=== PATIENT | female | born 1990 | race Two or more races ===

== ENCOUNTER → 2022-07-24 | Day surgery (SDC) | payer MEDICAID ==
[2022-07-23 12:13] LABS: INR 0.98 (0.9-1.15); Partial Thromboplastin Time 27.7 sec (24.6-33.4)
[2022-07-23 12:15] LABS: Albumin 3.9 g/dL (3.4-5.0); Calcium 8.5 mg/dL (8.5-10.1); Potassium 4.1 mmol/L (3.5-5.1)
[2022-07-23 12:18] LABS: BUN/Creatinine Ratio 14.1; Basophils # (auto) 0.2 10 ^3/uL (0-0.2); Basophils % (auto) 2.7 % (0.0-2.0); Bilirubin, Total 0.3 mg/dL (0.2-1.0); Eosinophils # (auto) 0.1 10 ^3/uL (0-0.8); Eosinophils % (auto) 1.4 % (0.0-7.0); Hematocrit 38.9 % (36.0-46.0); Hemoglobin 13.3 g/dL (12.2-16.2); Lymphocytes # (auto) 1.4 10 ^3/uL (0.4-5.4); Lymphocytes % (auto) 17.1 % (10.0-50.0); Mean Corpuscular Hemoglobin 32.1 pg (28.0-32.0); Mean Corpuscular Hgb Conc. 34.2 g/dL (32.0-36.0); Monocytes # (auto) 0.5 10 ^3/uL (0-1.3); Monocytes % (auto) 5.4 % (0.0-12.0); Neutrophils # (auto) 6.2 10 ^3/uL (1.6-8.6); Neutrophils % (auto) 73.4 % (37.0-80.0); Red Blood Cells 4.13 10^6/uL (4.0-5.20); Red Cell Distribution Width 12.3 % (11.8-14.3); Total Protein 7.6 g/dL (6.4-8.2); White Blood Cell 8.5 10^3/uL (4.4-10.8)
[2022-07-23 12:19] LABS: Urine Bacteria NONE SEEN /hpf (None Seen); Urine Blood Negative /uL (Negative); Urine WBC <1 /hpf (0 - 5)
[~2022-07-24] VITALS: Ht 152.4 cm; Wt 59.0 kg
[~2022-07-24] MED LIST: BUPIVACAINE 0.25% INJ 50ML VIAL ONE; BUPIVACAINE 0.5% P/F INJ 10 ML VIAL ONE; DexAMETHasone SOD PHOS 10MG/1ML VIAL INJ ONE; HYDROmorphone HCL 2 MG/ML VL/or syr IV PRN; IBUP600T27 PO; KETOROLAC TROMETH 30 MG/ML 1ML VIAL IV ONE; LABETALOL HCL 5 MG/ML 4ML SYRINGE IV PRN; LIDOCAINE 2% JELLY 11ml (GLYDO) ONE; LIDOCAINE W/ EPINEPHRINE 2% INJ 20ML VIAL ONE; MEPERIDINE HCL (50 MG/ML) 1 ML VIAL ONE; MIDAZOLAM HCL 2MG/2ML 2ml VIAL (1mg/ml) IV PRN; MIDAZOLAM HCL 2MG/2ML 2ml VIAL (1mg/ml) ONE; MORPHINE SULFATE 4 MG/ML SYR/VIAL IV PRN; ONDANSETRON HCL 4 MG/2 ML VIAL IV PRN; ONDANSETRON HCL 4 MG/2 ML VIAL ONE; PROPOFOL 10 MG/ML 20 ML IV ONE; SUCCINYLCHOLINE CHLORIDE 20 MG/ML 10ML VIAL IV ONE; ceFAZolin 1GM/50ML 100 ML IV ONE; ePHEDrine SULFATE 50 MG/ML AMP IV PRN; fentaNYL CITRATE 100 MCG/2 ML VL ONE
[2022-07-24 10:00] VITALS: BP 107/68
== END | disposition home or self-care (01) ==
LOC: SUR 06:55
PROVIDERS: ATTEND Surgery
DX: N61.0 Mastitis without abscess (principal); Z79.891 Long term (current) use of opiate analgesic; Z79.1 Long term (current) use of non-steroidal anti-inflammatories (NSAID); Z20.822 Contact with and (suspected) exposure to COVID-19
CPT/HCPCS: 19101; 36415; 80053; 81001; 81025; 84702; 85025; 85610; 85730; 86850; 86900; 86901; 88305; 88331; 88342; J0330; J0690; J1100; J2175; J2250; J2405; J2704; J3010; J3490; U0003